=== PATIENT | male | born 1980 | race Two or more races ===

== ENCOUNTER 2016-12-01 18:20 | Emergency (ER) | payer OTHER ==
[~2016-12-01] VITALS: Ht 193 cm; Wt 113.4 kg
[2016-12-01] MEDS: HYDROcodone-ACET 10/325MG TAB PO ONE ×2 (10:06→22:06)
[2016-12-01] MEDS ORDERED: ONDANSETRON HCL 4 MG/2 ML VIAL IV ONE (21:15)
[2016-12-01] MEDS ORDERED: ONDANSETRON ODT 4 MG TAB PO ONE (22:00)
[2016-12-01 22:30] VITALS: BP 132/94
== END 2016-12-02 00:01 | disposition home or self-care (01) ==
LOC: ER 18:22
DX: N43.3 Hydrocele, unspecified (principal)
CPT/HCPCS: 76870; 99284; Q0162; J2405

== ENCOUNTER 2017-12-15 17:23 | Emergency (ER) | payer OTHER ==
[~2017-12-15] VITALS: Ht 190.5 cm; Wt 97.5 kg
[2017-12-15 18:11] VITALS: BP 129/83
[2017-12-15] MEDS ORDERED: LIDOCAINE 1% HCL (LOCAL ANESTH.) INJ 20ML MDV ONE (18:31)
[2017-12-15] MEDS ORDERED: HYDROcodone-ACET 10/325MG TAB PO ONE (19:30)
[2017-12-15] MEDS ORDERED: cefTRIAXone 1GM/50ML D5W 50 ML IV ONE (19:30)
[2017-12-15] MEDS ORDERED: LIDOCAINE 1% HCL (LOCAL ANESTH.) INJ 20ML MDV ID ONE (20:45)
== END 2017-12-15 21:04 | disposition home or self-care (01) ==
LOC: ER 17:23
DX: S01.511A Laceration without foreign body of lip, initial encounter (principal); W21.07XA Struck by softball, initial encounter; Y93.64 Activity, baseball; Y92.89 Other specified places as the place of occurrence of the external cause; Y99.8 Other external cause status
CPT/HCPCS: 12013; 70486; 96365; 99284; J0696; J2001

== ENCOUNTER 2018-11-11 14:56 | Emergency (ER) | payer OTHER ==
[~2018-11-11] VITALS: Ht 170.2 cm; Wt 115.7 kg
[2018-11-11 15:44] VITALS: BP 115/73
[2018-11-11 15:56] LABS: Basophils # (auto) 0.1 uL; Basophils % (auto) 0.7 % (0.0-2.0); Lymphocytes # (auto) 1.3 uL; Monocytes # (auto) 0.7 uL; White Blood Cell 9.7 10^3/uL (4.4-10.8)
[2018-11-11 15:58] LABS: Eosinophils # (auto) 0.1 uL; Eosinophils % (auto) 0.6 % (0.0-7.0); Hematocrit 41.6 % (41.0-53.0); Hemoglobin 13.9 g/dL (13.5-17.5); Lymphocytes % (auto) 13.6 % (10.0-50.0); Mean Corpuscular Hemoglobin 26.3 pg (28.0-32.0); Mean Corpuscular Hgb Conc. 33.4 g/dL (32.0-36.0); Mean Corpuscular Volume 78.9 fL (80.0-100.0); Monocytes % (auto) 7.3 % (0.0-12.0); Neutrophils # (auto) 7.6 uL; Neutrophils % (auto) 77.8 % (37.0-80.0); Platelet Count (auto) 376 10^3/uL (140-450); Red Blood Cells 5.28 10^6/uL (4.5-5.90)
[2018-11-11 16:13] LABS: Alanine Aminotransferase 36 U/L (16-61); Albumin 3.3 g/dL (3.4-5.0); Anion Gap 5 (5-15); Aspartate Aminotransferase 16 U/L (15-37); BUN/Creatinine Ratio 11.7; Blood Urea Nitrogen 15 mg/dL (7-18); Calcium 8.7 mg/dL (8.5-10.1); Carbon Dioxide 26 mmol/L (21-32); Chloride 103 mmol/L (98-107); GFR African American 80 mL/min; GFR Non-African American 66 mL/min; Glucose 97 mg/dL (74-106); Potassium 4.1 mmol/L (3.5-5.1); Sodium 134 mmol/L (136-145)
[2018-11-11 16:18] LABS: Alkaline Phosphatase 89 U/L (45-117); Bilirubin, Total 0.4 mg/dL (0.2-1.0); Total Protein 7.5 g/dL (6.4-8.2)
[2018-11-11] MEDS ORDERED: MORPHINE SULF INJ 2 MG/ML SYRINGE 1ML ONE (16:23)
[2018-11-11] MEDS ORDERED: ONDANSETRON HCL 4 MG/2 ML VIAL ONE (16:23)
[2018-11-11] MEDS ORDERED: ONDANSETRON HCL 4 MG/2 ML VIAL IV ONE (16:30)
[2018-11-11] MEDS ORDERED: MORPHINE SULF INJ 2 MG/ML SYRINGE 1ML IV ONE (16:30)
== END 2018-11-11 17:41 | disposition home or self-care (01) ==
LOC: EDBD 14:56 → EDUNIT# 14:56 → ER 14:56 → EEVIPCON 14:56 → ER 17:41
DX: R60.0 Localized edema (principal); L04.3 Acute lymphadenitis of lower limb; J45.909 Unspecified asthma, uncomplicated
CPT/HCPCS: 36415; 71045; 80053; 84484; 85025; 93970; 96374; 96375; 99284; J2270; J2405